=== PATIENT | male | born 1995 | race Caucasian/White ===

== ENCOUNTER 2017-04-29 10:31 | Outpatient (CLI) | payer OTHER | END 2017-04-29 19:24 | disposition home or self-care (01) | LOC: SRD 10:31 | PROVIDERS: ATTEND Pediatrics | DX: S43.005A Unspecified dislocation of left shoulder joint, initial encounter (principal); X58.XXXA Exposure to other specified factors, initial encounter; Y93.89 Activity, other specified; Y92.89 Other specified places as the place of occurrence of the external cause; Y99.8 Other external cause status | CPT/HCPCS: 73030 ==

== ENCOUNTER 2018-11-10 19:54 | Inpatient (IN) | payer OTHER ==
[~2018-11-10] VITALS: Ht 180.3 cm; Wt 93.0 kg
[2018-11-10 20:04] VITALS: BP_SYST 151
[2018-11-10 20:47] LABS: BASOPHILS # (AUTO) 0.1 K/uL (0.0-0.2); BASOPHILS % (AUTO) 0.8 % (0.0-2.0); EOSINOPHILS # (AUTO) 0.3 K/uL (0.0-0.4); EOSINOPHILS % (AUTO) 4.1 % (0.0-4.0); HEMATOCRIT 46.9 % (36-54); HEMOGLOBIN 15.5 g/dL (14.0-18.0); LYMPHOCYTES # (AUTO) 1.5 K/uL (1.0-5.5); LYMPHOCYTES % (AUTO) 22.6 % (20.5-51.5); MEAN CORPUSCULAR HEMOGLOBIN 29 pg (27-31); MEAN CORPUSCULAR HGB CONC 33 % (32-36); MEAN CORPUSCULAR VOLUME 89 fL (79.0-98.0); MONOCYTES # (AUTO) 0.6 K/uL (0.0-1.0); MONOCYTES % (AUTO) 9.4 % (1.7-9.3); NEUTROPHILS # (AUTO) 4.3 K/uL (1.8-7.7); NEUTROPHILS % (AUTO) 63.1 % (40.0-70.0); PLATELET COUNT (AUTO) 206 K/uL (130-430); RED BLOOD CELL COUNT(AUTO) 5.25 MIL/uL (4.2-6.2); RED CELL DISTRIBUTION WIDTH 11.7 % (9.0-15.0); WHITE BLOOD COUNT (AUTO) 6.8 K/uL (4.8-10.8)
[2018-11-10 20:56] LABS: BILIRUBIN,URINE NEGATIVE (NEGATIVE); BLOOD, URINE TRACE (NEGATIVE); CLARITY/URINE CLEAR (CLEAR); COLOR,URINE YELLOW (YELLOW); GLUCOSE,URINE NEGATIVE (NEGATIVE); KETONES,URINE NEGATIVE (NEGATIVE); LEUKOCYTE ESTERASE ,URINE NEGATIVE (NEGATIVE); NITRITE, URINE NEGATIVE (NEGATIVE); PROTEIN URINE NEGATIVE (NEGATIVE); UROBILINOGEN,URINE 0.2 (0.2-1.0)
[2018-11-10 20:56] LABS: CALCIUM 9.5 mg/dL (8.4-11.0); POTASSIUM 4.1 mmol/L (3.5-5.1)
[2018-11-10] MEDS ORDERED: IOHEXOL 100 ML IV ONE (20:58)
[2018-11-10 21:00] LABS: ALBUMIN 3.9 g/dL (3.4-4.8); TOTAL BILIRUBIN 0.5 mg/dL (0.0-1.0)
[2018-11-10 21:01] LABS: BACTERIA,URINE RARE /HPF (None Seen); RBC,URINE 0-3 /HPF (0-3); WBC,URINE 0-3 /HPF (0-3)
[2018-11-10] MEDS ORDERED: KETOROLAC TROMETHAMINE 60 MG/2 ML VIAL IM ONE (21:45)
[2018-11-10] MEDS ORDERED: KETOROLAC TROMETHAMINE 30 MG VIAL IVP ONE (22:00)
[2018-11-10] MEDS ORDERED: PIPERACILLIN/TAZO 3.375 GM in NS 50 ML IV ONE (22:00)
[2018-11-10] MEDS ORDERED: PIPERACILLIN/TAZOBACTAM 3.375 GM/VIAL (ZOSYN) IV ONE (22:36)
[2018-11-10 23:28] VITALS: BP_SYST 120
[2018-11-10] MEDS: D5/0.45 NS 1,000 ML IV SCH (23:47)
[2018-11-10] MEDS: KETOROLAC TROMETHAMINE 15 MG VIAL IVP PRN (23:47)
[2018-11-11] MEDS ORDERED: PIPERACILLIN/TAZOBACTAM 3.375 GM/VIAL (ZOSYN) IV ONE (00:58)
[2018-11-11] MEDS: PIPERACILLIN/TAZO 3.375/DEX-IS 50 ML IV SCH ×4 (05:34→23:36)
[2018-11-11] MEDS: D5/0.45 NS 1,000 ML IV SCH ×3 (05:34→22:22)
[2018-11-11 06:06] VITALS: BP_SYST 135
[2018-11-11 06:53] LABS: BASOPHILS % (AUTO) 0.5 % (0.0-2.0); EOSINOPHILS # (AUTO) 0.3 K/uL (0.0-0.4); EOSINOPHILS % (AUTO) 5.6 % (0.0-4.0); HEMATOCRIT 45.1 % (36-54); HEMOGLOBIN 15.1 g/dL (14.0-18.0); LYMPHOCYTES # (AUTO) 1.8 K/uL (1.0-5.5); LYMPHOCYTES % (AUTO) 34.5 % (20.5-51.5); MEAN CORPUSCULAR HEMOGLOBIN 30 pg (27-31); MEAN CORPUSCULAR HGB CONC 33 % (32-36); MEAN CORPUSCULAR VOLUME 89 fL (79.0-98.0); MONOCYTES # (AUTO) 0.7 K/uL (0.0-1.0); MONOCYTES % (AUTO) 13.3 % (1.7-9.3); NEUTROPHILS # (AUTO) 2.5 K/uL (1.8-7.7); NEUTROPHILS % (AUTO) 46.1 % (40.0-70.0); PLATELET COUNT (AUTO) 183 K/uL (130-430); RED BLOOD CELL COUNT(AUTO) 5.06 MIL/uL (4.2-6.2); RED CELL DISTRIBUTION WIDTH 11.9 % (9.0-15.0); WHITE BLOOD COUNT (AUTO) 5.3 K/uL (4.8-10.8)
[2018-11-11 07:19] LABS: ALBUMIN 3.4 g/dL (3.4-4.8); CALCIUM 9.1 mg/dL (8.4-11.0); CREATININE 0.98 mg/dL (0.55-1.30); PHOSPHORUS 5.1 mg/dL (2.7-4.5); POTASSIUM 3.9 mmol/L (3.5-5.1); TOTAL BILIRUBIN 0.8 mg/dL (0.0-1.0)
[2018-11-11 08:09] VITALS: BP_SYST 117
[2018-11-11] MEDS: PANTOPRAZOLE SODIUM 40 MG/VIAL (PROTONIX) IVP SCH (08:55)
[2018-11-11] MEDS: KETOROLAC TROMETHAMINE 15 MG VIAL IVP PRN ×2 (11:25→21:21)
[2018-11-11 12:51] VITALS: BP_SYST 123
[2018-11-11 17:11] VITALS: BP_SYST 126
[2018-11-11] MEDS ORDERED: ACETAMINOPHEN 325 MG TABLET PO PRN (18:00)
[2018-11-11] MEDS ORDERED: ONDANSETRON HCL 4 MG/2 ML VIAL IVP PRN (18:00)
[2018-11-11] MEDS ORDERED: LR 1,000 ML IV SCH (18:46)
[2018-11-11] MEDS ORDERED: MEPERIDINE HCL/PF 25 MG/ML DISP.SYRIN IVP PRN (19:00)
[2018-11-11] MEDS ORDERED: HYDROmorphone 1 MG INJ. 1 MG/ML AMPUL IVP PRN (19:00)
[2018-11-11] MEDS ORDERED: HYDROmorphone 2 MG/ML VIAL IVP PRN ×2 (19:00)
[2018-11-11] MEDS ORDERED: SEVOFLURANE 15 MIN GAS INH ONE (19:20)
[2018-11-11] MEDS ORDERED: PROPOFOL 200MG/ 20ML VIAL (DIPRIVAN) IV ONE (19:20)
[2018-11-11] MEDS ORDERED: MIDAZOLAM HCL 5 MG/ML VIAL (VERSED) IV ONE (19:20)
[2018-11-11] MEDS ORDERED: DEXAMETHASONE SOD PHOSPHATE 4 MG/ML VIAL ONE (19:20)
[2018-11-11] MEDS ORDERED: ONDANSETRON HCL 4 MG/2 ML VIAL ONE (19:20)
[2018-11-11] MEDS ORDERED: ROCURONIUM BROMIDE 10 MG/ML (ZEMURON) ONE (19:20)
[2018-11-11] MEDS ORDERED: fentaNYL CITRATE 250 MCG/5 ML AMP ONE (19:20)
[2018-11-11] MEDS ORDERED: SUGAMMADEX SODIUM 200 MG/2 ML VIAL IV ONE (19:20)
[2018-11-11] MEDS ORDERED: LR 1,000 ML IV.SOLN IV ONE (19:20)
[2018-11-11] MEDS ORDERED: NS 1000 ML IV.SOLN IV ONE (19:20)
[2018-11-11] MEDS ORDERED: KETOROLAC TROMETHAMINE 30 MG VIAL ONE (19:20)
[2018-11-11] MEDS ORDERED: BUPIVACAINE /EPINEPHRINE/PF 0.25% 30 ML VIAL INJ ONE (19:20)
[2018-11-11 20:09] VITALS: BP_SYST 126
[2018-11-11 20:58] VITALS: BP_SYST 137
[2018-11-12 00:48] VITALS: BP_SYST 143
[2018-11-12] MEDS: HYDROmorphone 1 MG INJ. 1 MG/ML AMPUL IVP PRN ×2 (03:17→06:31)
[2018-11-12] MEDS: PIPERACILLIN/TAZO 3.375/DEX-IS 50 ML IV SCH ×3 (05:59→17:55)
[2018-11-12] MEDS: D5/0.45 NS 1,000 ML IV SCH ×2 (05:59→09:55)
[2018-11-12 08:00] VITALS: BP_SYST 118
[2018-11-12 08:23] LABS: WHITE BLOOD COUNT (AUTO) 8.7 K/uL (4.8-10.8)
[2018-11-12 08:24] LABS: HEMATOCRIT 43.9 % (36-54); HEMOGLOBIN 14.8 g/dL (14.0-18.0); LYMPHOCYTES % (AUTO) 9.4 % (20.5-51.5); MEAN CORPUSCULAR HEMOGLOBIN 30 pg (27-31); MEAN CORPUSCULAR HGB CONC 34 % (32-36); MEAN CORPUSCULAR VOLUME 89 fL (79.0-98.0); NEUTROPHILS % (AUTO) 84.1 % (40.0-70.0); PLATELET COUNT (AUTO) 202 K/uL (130-430); RED BLOOD CELL COUNT(AUTO) 4.91 MIL/uL (4.2-6.2); RED CELL DISTRIBUTION WIDTH 11.7 % (9.0-15.0)
[2018-11-12 08:25] LABS: EOSINOPHILS % (AUTO) 0.1 % (0.0-4.0); LYMPHOCYTES # (AUTO) 0.8 K/uL (1.0-5.5); MONOCYTES # (AUTO) 0.6 K/uL (0.0-1.0); MONOCYTES % (AUTO) 6.4 % (1.7-9.3); NEUTROPHILS # (AUTO) 7.3 K/uL (1.8-7.7)
[2018-11-12] MEDS: NACL 0.9% 1,000 ML IV SCH ×2 (08:38→13:57)
[2018-11-12] MEDS: PANTOPRAZOLE SODIUM 40 MG/VIAL (PROTONIX) IVP SCH (08:41)
[2018-11-12 08:42] LABS: POTASSIUM 4.5 mmol/L (3.5-5.1)
[2018-11-12 08:43] LABS: ALBUMIN 3.4 g/dL (3.4-4.8); CALCIUM 9.3 mg/dL (8.4-11.0); CREATININE 0.92 mg/dL (0.55-1.30); TOTAL BILIRUBIN 0.8 mg/dL (0.0-1.0)
[2018-11-12 12:00] VITALS: BP_SYST 125
[2018-11-12] MEDS ORDERED: LEVO750T45 PO (12:39)
[2018-11-12] MEDS ORDERED: METR500T PO (12:40)
[2018-11-12] MEDS: HYDROcodone/ACETAMIN 5-325 MG TAB (NORCO/ VICODIN) PO PRN ×2 (15:36→19:06)
[2018-11-12 17:02] VITALS: BP_SYST 122
[2018-11-12 18:08] VITALS: BP_SYST 115
== END 2018-11-12 19:10 | disposition home or self-care (01) | DRG 341 ==
LOC: SED 19:54 → SMU 22:13
PROVIDERS: ADMIT Internal Medicine Hospice and Palliative Medicine; ATTEND Internal Medicine Hospice and Palliative Medicine
PROC: 0DTJ4ZZ Resection of Appendix, Percutaneous Endoscopic Approach (ICD-10-PCS; principal; 2018-11-11 16:45)
DX: K35.80 Unspecified acute appendicitis (principal); E43 Unspecified severe protein-calorie malnutrition; E66.01 Morbid (severe) obesity due to excess calories; Z68.28 Body mass index [BMI] 28.0-28.9, adult
CPT/HCPCS: 36415; 80053; 81000-TC; 83605; 83690-TC; 83735-TC; 84100-TC; 85025; 87040-TC; 87081; 88304; 90656; 96365; 96375; 99285; C1727; C9113; C9399; G0482; J1100; J1170; J1885; J2250; J2405; J2543; J2704; J3010; J3490; J7030; J7120; Q9967